=== PATIENT | female | born 2000 | race Asian ===

== ENCOUNTER 2024-11-12 13:54 | Emergency (ER) | payer OTHER ==
[~2024-11-12] VITALS: Ht 162.6 cm; Wt 55.0 kg
[2024-11-12 13:56] VITALS: O2SAT 99
[2024-11-12 14:35] LABS: BASOPHILS % 0.5 % (0.0-2.0); EOSINOPHILS % 0.2 % (0.0-5.0); HEMATOCRIT. 43.3 % (36.0-48.0); HEMOGLOBIN. 14.1 g/dL (12.0-16.0); LYMPHOCYTES % 23.5 % (20.0-50.0); MEAN PLATELET VOLUME 7.9 fl (7.4-10.4); MONOCYTES % 5.5 % (2.0-8.0); NEUTROPHILS % 70.3 % (40.0-76.0); PLATELET 214 x1000/uL (130-400); RED BLOOD CELL COUNT 4.66 mill/uL (4.2-5.4); RED CELL DISTRIBUTION WIDTH 13.1 % (11.6-14.6)
[2024-11-12 14:49] LABS: CREATININE 0.7 mg/dL (0.6-1.0)
[2024-11-12 14:50] LABS: TROPONIN I HIGH SENSITIVITY < 4 ng/L (3.0-34); UREA NITROGEN BLOOD 8 mg/dL (9-23)
[2024-11-12 14:51] LABS: ASPARTATE AMINOTRANSFERASE 16 IU/L (<34)
[2024-11-12 14:52] LABS: BILIRUBIN DIRECT 0.5 mg/dL (<=3.0); BILIRUBIN TOTAL 1.9 mg/dL (0.1-1.0); PROTEIN TOTAL 7.2 g/dL (6.0-8.3)
[2024-11-12 14:53] LABS: HCG SCREEN NEGATIVE
[2024-11-12 17:29] LABS: TROPONIN I HIGH SENSITIVITY < 4 ng/L (3.0-34)
[2024-11-12 17:55] VITALS: BP 109/79; PULSE 71; RESP 16; TEMP 36.4; O2SAT 100
== END 2024-11-12 17:57 | disposition home or self-care (01) ==
LOC: ER 14:18
DX: R55 Syncope and collapse (principal)
CPT/HCPCS: 80076; 80048; 84703; 85025; 84484; 36415; 93005; 99284; Z7610 ×2; A4606